=== PATIENT | female | born 1935 | race Hispanic/Latino ===

== ENCOUNTER 2017-11-25 17:15 | Emergency (ER) | payer MEDICARE, MEDICAID ==
--- NOTE | 2017-11-25 17:24 | ED PDOC ---
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. Patient reports this has never happened before. States she is allergic to penicillin, aspirin, oranges, eggs, and chicken, however she has not taken/eaten any of the following. Patient is uncertain how this may have occurred. Patient denies any chest pain, shortness of breath, abdominal pain, syncope, or any other complaints at this time. PMD: Dr. Betts Past Medical History - Provider Review Nursing Documentation Reviewed: Yes Family/Social History - Physician Review Nursing Documentation Reviewed: Yes Family/Social History: No Known Family HX Allergies/Home Meds Allergies/Adverse Reactions: Allergies Penicillins Allergy (Severe, Verified 11/25/17 17:39) SHORTNESS OF BREATH aspirin Allergy (Mild, Verified 11/25/17 17:40) ITCHING Review of Systems - Physician Review All systems were reviewed & negative as marked: Yes - Review of Systems Respiratory: absent: SOB Cardiovascular: absent: Chest Pain Gastrointestinal: absent: Abdominal Pain Skin: Pruritis (pruritis/redness all over body extremities) Physical Exam - Physical Exam Narrative Physical Exam (Text): Gen: VS reviewed, alert, well developed, well nourished, nontoxic, mild distress. ENT: normal pharynx. Eye: EOMI, PERRL. Neck: no JVD, supple, no adenopathy. CV: regular rate, regular rhythm, no rubs, no murmur, no gallops, S1, S2, pulses equal and strong. Pulm: no distress, clear to auscultation, no wheeze, no rhonchi, breath sounds equal, no rales. Abd: soft, nontender, no guarding, no rebound, no rigidity, normal bowel sounds. Ext: no edema. Skin: pruritic body rash Psych: responds appropriately to questions, normal affect. Neuro: oriented x 3, CN2-12 intact grossly, motor intact, sensation intact. Vital Signs Reviewed: Yes Vital Signs Temp Pulse Resp BP Pulse Ox 11/25/17 19:40 98.2 F 94 H 16 126/66 94 L 11/25/17 17:25 98.2 F 102 H 20 121/67 97 Temperature: Afebrile Blood Pressure: Normal Pulse: Regular Respiratory Rate: Normal Appearance: Positive for: Well-Appearing, Non-Toxic, Comfortable Pain Distress: None Mental Status: Positive for: Alert and Oriented X 3 Medical Decision Making ED Course and Treatment: 11/25/17 17:48 Impression: 82 year old female with body pruritis/redness. Plan: -- Benadryl -- SOLU-Medrol -- Reassess and disposition Progress Notes: 11/25/17 18:50 Upon re-evaluation, patient is feeling much better, as rash has resolved and no longer feeling itchy. Patient is ready to be discharged. 11/25/17 22:45 patient was seen for generalized red and itchy rash. symptoms resolved after ED medication. there was clearly no hx of syncope from the patient which is in clear contrast to the report received from medics. all discussion with the patient were with pump tester phone. patient has clear understanding of plan and tx and was discharged in stable condition. - Medication Orders Current Medication Orders: Discontinued Medications Diphenhydramine HCl (Benadryl) 50 mg IVP STAT STA Stop: 11/25/17 17:44 Last Admin: 11/25/17 18:34 Dose: 50 mg IVP Administration Document 11/25/17 18:34 (Rec: 11/25/17 18:34 [id number] Charges for Administration # of IVP Administrations 1 Methylprednisolone (Solu-Medrol) 60 mg IVP STAT STA Stop: 11/25/17 17:44 Last Admin: 11/25/17 18:33 Dose: 60 mg IVP Administration Document 11/25/17 18:33 (Rec: 11/25/17 18:34 [id number] Charges for Administration # of IVP Administrations 1 - Scribe Statement The provider has reviewed the documentation as recorded by the Josiane Solano Provider Scribe Attestation: All medical record entries made by the Scribe were at my direction and personally dictated by me. I have reviewed the chart and agree that the record accurately reflects my personal performance of the history, physical exam, medical decision making, and the department course for this patient. I have also personally directed, reviewed, and agree with the discharge instructions and disposition. Disposition/Present on Arrival - Present on Arrival Any Indicators Present on Arrival: No - Disposition Have Diagnosis and Disposition been Completed?: Yes Diagnosis: Allergic reaction Disposition: HOME/ ROUTINE Disposition Time: 18:54 Patient Plan: Discharge Condition: STABLE Discharge Instructions (ExitCare): [employer] Print Language: CITIZEN OF [place] Additional Instructions: JOSEPH MAYER, thank you for letting us take care of you today. Your provider was Dr. Hank Clemente and you were treated for allergic reaction. The emergency medical care you received today was directed at your acute symptoms. If you were prescribed any medication, please fill it and take as directed. It may take several days for your symptoms to resolve. Return to the Emergency Department if your symptoms worsen, do not improve, or if you have any other problems. Please contact your doctor or call one of the physicians/clinics you have been referred to that are listed on the Patient Visit Information form that is included in your discharge packet. Bring any paperwork you were given at discharge with you along with any medications you are taking to your follow up visit. Our treatment cannot replace ongoing medical care by a primary care provider outside of the emergency department. Thank you for allowing the [facility] team to be part of your care today. If you had an X-Ray or CT scan: A Radiologist will review the ED reading if any change in treatment is needed we will contact you. If you had a blood, urine, or wound culture: It will take several days for the results, if any change in treatment is needed we will contact you. If you had an STI test: It will take 48 hours for the results. Please call after 1 week if you have not heard back. Prescriptions: Prednisone [Deltasone] 40 mg PO DAILY 7 Days #14 tablet Forms: [employer] (German)
[2017-11-25 17:26] VITALS: TEMP 98.2
[2017-11-25] MEDS ORDERED: DiphenhydrAMINE 50 mg/ml Inj IVP STA (17:43)
[2017-11-25 18:08] VITALS: BMI 33.0
[2017-11-25 19:41] VITALS: BP 126/66; PULSE 94; RESP 16; O2SAT 94
== END 2017-11-25 19:35 | disposition home or self-care (01) ==
LOC: ED 17:15
DX: T78.40XA Allergy, unspecified, initial encounter (principal); I10 Essential (primary) hypertension
CPT/HCPCS: 96374; 96375; 99285; J1200; J2930